=== PATIENT | female | born 1965 | race Caucasian/White ===

== ENCOUNTER 2024-03-06 07:29 | Day surgery (SDC) | payer MEDICAID ==
[2024-03-06] MEDS ORDERED: fentaNYL 100 MCG/2 ML SDV IV ONE (07:30)
[2024-03-06] MEDS ORDERED: Midazolam 1 MG/ML 2 ML SDV IV ONE (07:30)
[2024-03-06] MEDS ORDERED: Sodium Chloride 0.9% 10 ML Syringe FLUSH PRN (08:11)
[2024-03-06] MEDS: Lactated Ringers 1,000 ML IV SCH (08:44)
[2024-03-06] MEDS: acetaZOLAMIDE 500 MG Cap.ER PO ONE (10:03)
== END 2024-03-06 10:24 | disposition home or self-care (01) ==
LOC: FB.SDS 07:29
PROVIDERS: ATTEND Ophthalmology
DX: E11.36 Type 2 diabetes mellitus with diabetic cataract (principal); H25.13 Age-related nuclear cataract, bilateral; H25.043 Posterior subcapsular polar age-related cataract, bilateral; H04.123 Dry eye syndrome of bilateral lacrimal glands; F41.9 Anxiety disorder, unspecified; F17.210 Nicotine dependence, cigarettes, uncomplicated; Z79.899 Other long term (current) drug therapy
CPT/HCPCS: 00142; 82947; A9270-GY; J2250; J3010; J7120; V2632

== ENCOUNTER 2024-03-27 06:44 | Day surgery (SDC) | payer MEDICAID ==
[2024-03-27] MEDS ORDERED: fentaNYL 100 MCG/2 ML SDV IV ONE (06:45)
[2024-03-27] MEDS ORDERED: Sodium Chloride 0.9% 10 ML Syringe FLUSH PRN (06:45)
[2024-03-27] MEDS ORDERED: Midazolam 1 MG/ML 2 ML SDV IV ONE (06:45)
[2024-03-27] MEDS: Lactated Ringers 1,000 ML IV SCH (07:46)
[2024-03-27] MEDS: acetaZOLAMIDE 500 MG Cap.ER PO ONE (08:49)
== END 2024-03-27 09:10 | disposition home or self-care (01) ==
LOC: FB.SDS 06:44
PROVIDERS: ATTEND Ophthalmology
DX: H26.9 Unspecified cataract (principal); F41.9 Anxiety disorder, unspecified; F17.210 Nicotine dependence, cigarettes, uncomplicated; Z79.899 Other long term (current) drug therapy; Z79.84 Long term (current) use of oral hypoglycemic drugs; Z88.0 Allergy status to penicillin
CPT/HCPCS: 00142; 82947; A9270-GY; J2250; J3010; J7120; V2632

== ENCOUNTER 2024-05-09 07:01 | Emergency (ER) | payer MEDICAID | END 2024-05-09 08:30 | disposition home or self-care (01) | LOC: FB.ED 07:01 | DX: J20.9 Acute bronchitis, unspecified (principal); J45.901 Unspecified asthma with (acute) exacerbation; E11.9 Type 2 diabetes mellitus without complications; F17.210 Nicotine dependence, cigarettes, uncomplicated; Z79.84 Long term (current) use of oral hypoglycemic drugs; Z79.899 Other long term (current) drug therapy; Z88.0 Allergy status to penicillin; Z91.048 Other nonmedicinal substance allergy status | CPT/HCPCS: 99284 ==